=== PATIENT | male | born 1955 ===

== ENCOUNTER 2019-07-23 09:31 | Day surgery (SDC) | payer OTHER ==
[2019-07-23] VITALS (9 sets, daily range): BP systolic 114–146; BP diastolic 69–82
[~2019-07-23] VITALS: Ht 172.7 cm; Wt 88.9 kg
[~2019-07-23 09:31] MED LIST: LR 1000ml 1,000 ML IVLG SCH
[2019-07-23] MEDS ORDERED: SIMVASTATIN5 MG ORAL (10:09)
[2019-07-23] MEDS ORDERED: LR 1000ml ONE (11:00)
[2019-07-23] MEDS ORDERED: Propofol 200mg/20ml IV ONE (11:00)
[2019-07-23] MEDS ORDERED: Lidocaine 1% MPF 10mg/ml 5ml ONE (11:00)
[2019-07-23] MEDS ORDERED: LR 1000ml 1,000 ML IVLG SCH (11:07)
[2019-07-23] MEDS ORDERED: Midazolam 2mg/2ml Inj IVP PRN (11:15)
[2019-07-23] MEDS ORDERED: Meperidine 50mg/ml Inj(FOR RIGORS ONLY) IVP PRN (11:15)
[2019-07-23] MEDS ORDERED: Metoclopramide 10mg/2ml Inj IVP PRN (11:15)
[2019-07-23] MEDS ORDERED: oxyCODONE HCL/Acetaminophen 5/325mg ORAL PRN (11:15)
[2019-07-23] MEDS ORDERED: Ketorolac 30mg Inj IV PRN ×2 (11:15)
[2019-07-23] MEDS ORDERED: HYDROcodone/Acetamin 5/325 tab ORAL PRN (11:15)
[2019-07-23] MEDS ORDERED: DiphenhydrAMINE 50mg/ml Inj IVP PRN (11:15)
[2019-07-23] MEDS ORDERED: Labetalol 5mg/ml 20ml vial IV PRN (11:15)
[2019-07-23] MEDS ORDERED: HYDROcodone/Acetamin 7.5/325 tab ORAL PRN (11:15)
[2019-07-23] MEDS ORDERED: LORazepam Inj 2mg/ml 1ml IV PRN (11:15)
[2019-07-23] MEDS ORDERED: fentaNYL 100 mcg/2 mL IV PRN (11:15)
[2019-07-23] MEDS ORDERED: Atropine Sulfate 0.4mg/ml inj IVP PRN (11:15)
[2019-07-23] MEDS ORDERED: Hydromorphone 0.5mg/0.5ml inj IVP PRN (11:15)
--- NOTE | 2019-07-23 11:17 | Anethesia Preoperative Eval ---
Anesthesia Pre-op PMH/ROS General Date of Evaluation: Jul 23, 2019 Time of Evaluation: 11:03 Anesthesiologist: Miguel ASA Score: ASA 3 Mallampati Score Class I : Soft palate, uvula, fauces, pillars visible Class II: Soft palate, uvula, fauces visible Class III: Soft palate, base of uvula visible Class IV: Only hard plate visible Mallampati Classification: Class III Surgeon: Artem Diagnosis: Abd Pain Surgical Procedure: Colonoscopy Anesthesia History: none Family History: no anesthesia problems Allergies: Coded Allergies: No Known Allergies (Unverified , 07/23/19) Medications: see eMAR Patient NPO?: Yes Past Medical History Cardiovascular: Reports: HTN, other - HL Other: obesity - BMI 31 Anesthesia Pre-op Phys. Exam Physician Exam Last Vital Signs Date Time Temp Pulse Resp B/P (MAP) Pulse Ox O2 Delivery O2 Flow Rate FiO2 07/23/19 10:06 Room Air 07/23/19 10:03 97.0 71 18 146/80 98 Constitutional: NAD Neurologic: CN 2-12 intact Cardiovascular: RRR Respiratory: CTA Gastrointestinal: S/NT/ND Airway Exam Mallampati Score: Class III MO: full ROM: full Teeth: missing, intact Anesthesia Pre-op A/P Risk Assessment & Plan Assessment: ASA 3 Plan: TIVA Status Change Before Surgery: No Jason Rivera MD Jul 23, 2019 11:17
--- NOTE | 2019-07-23 11:17 | Short Stay Surgery H&P ---
History of Present Illness History of Present Illness Chief Complaint see typed H&P HPI Enrique Montes De Oca is a 63 year old male who was admitted on for Hx Of Colon Polyps Patient History Allergies: Coded Allergies: No Known Allergies (Unverified , 07/23/19) Medication History Scheduled Simvastatin (Zocor), Unknown Dose ORAL BEDTIME, (Reported) Physical Exam Vital Signs Last Vital Signs Date Time Temp Pulse Resp B/P (MAP) Pulse Ox O2 Delivery O2 Flow Rate FiO2 07/23/19 10:06 Room Air 07/23/19 10:03 97.0 71 18 146/80 98 Plan Attestation Are the patient's medical conditions optimized for surgery? Brittny Mcgill MD Jul 23, 2019 11:17
--- NOTE | 2019-07-23 11:18 | Pre-Procedure Note/Attestation ---
Pre-Procedure Note/Attestation Complete Prior to Procedure Planned Procedure: not applicable Procedure Narrative: colon Indications for Procedure Pre-Operative Diagnosis: h/o polyp Attestation I attest that I discussed the nature of the procedure; its benefits; risks and complications; and alternatives (and the risks and benefits of such alternatives ), prior to the procedure, with the patient (or the patient's legal customer service representative teller). I attest that, if there was a reasonable possibility of needing a blood transfusion, the patient (or the patient's legal customer service representative teller) was given the [facility] standardized written summary, pursuant to the [place] Nessa Blood Safety Act ([place] Health and Safety Code # 1645, as amended). I attest that I re-evaluated the patient just prior to the surgery and that there has been no change in the patient's H&P, except as documented below: Brittny Mcgill MD Jul 23, 2019 11:18
--- NOTE | 2019-07-23 11:21 | Immediate Post-Op Evaluation ---
Immediate Post-Op Evalulation Immediate Post-Op Evalulation Procedure: Colonoscopy Date of Evaluation: Jul 23, 2019 Time of Evaluation: 12:10 IV Fluids: 400 LR Blood Products: 0 Estimated Blood Loss: 2 Urinary Output: 0 Blood Pressure Systolic: 112 Blood Pressure Diastolic: 77 Pulse Rate: 54 Respiratory Rate: 16 O2 Sat by Pulse Oximetry: 100 Temperature (Fahrenheit): 97.7 Pain Score (1-10): 1 Nausea: No Vomiting: No Complications 0 Patient Status: awake, reacts, patent, none Hydration Status: adequate Jason Rivera MD Jul 23, 2019 11:21
--- NOTE | 2019-07-23 11:25 | 48 Hour Post Anesthesia Eval ---
Post Anesthesia Evaluation Procedure: Colonoscopy Date of Evaluation: Jul 23, 2019 Time of Evaluation: 14:23 Blood Pressure Systolic: 122 0: 72 Pulse Rate: 67 Respiratory Rate: 18 Temperature (Fahrenheit): 97.7 O2 Sat by Pulse Oximetry: 100 Airway: patent Nausea: No Vomiting: No Pain Intensity: 1 Hydration Status: adequate Cardiopulmonary Status: Stable Mental Status/LOC: patient returned to baseline Follow-up Care/Observations: 0 Post-Anesthesia Complications: 0 Follow-up care needed: ready to discharge Jason Rivera MD Jul 23, 2019 11:25
[2019-07-23] MEDS ORDERED: Flumazenil 0.1mg/ml 5ml Inj IV ONE (11:52)
--- NOTE | 2019-07-23 11:55 | Endoscopy Procedure Note ---
Endoscopy Procedure Note General Indication for Procedure: h/o polyp Procedures Performed: colonoscopy Operative Findings/Diagnosis: TV polyp --> h snare, mild L diverticulosis Specimen: yes Pt Tolerated Procedure Well: Yes Estimated Blood Loss: none Anesthesia Anesthesiologist: Miguel Anesthesia: MAC Medications Medication Given: see anesthesia record Inserted Devices Implant(s) used?: No Quality Quality of Bowel Preparation: Excellent GI Core Measures 50 yrs or older w/o bx or poly: No 10yrs. F/U recommended: No If not recommended, why?: Above average risk 18 years or older w/prev. colo: Yes <3yrs. since last colonoscopy: No Med reason:<3 yrs.: System Reason:<3 yrs.: Brittny Mcgill MD Jul 23, 2019 11:55
--- NOTE | 2019-07-23 11:58 | Brief Operative Note ---
Immediate Post Operative Note Operative Note Chief Complaint: h/o polyp Pre-op Diagnosis: h/o polyp Procedure: colon, hot snare Post-op Diagnosis: TV polyp - hot snare, mild Sig ins Surgeon: anatoliy Anesthesiologist: Miguel Anesthesia: MAC Specimen: yes Complications: none Condition: stable Fluids: recorded Estimated Blood Loss: none Drains: none Implant(s) used?: No Brittny Mcgill MD Jul 23, 2019 11:58
--- NOTE | 2019-07-24 06:30 | Operative Note - Dictated ---
DATE OF OPERATION: 07/23/2019 PROCEDURE: Colonoscopy with snare polypectomy. SURGEON: Brittny Mcgill M.D. ANESTHESIA: Please see the separate anesthesiologist notes for details. PREOP-ENDOSCOPIC DIAGNOSIS: History of colonic polyps. POST-ENDOSCOPIC DIAGNOSES: 1. transverse colon polyp, status post hot snare polypectomy. 2. Mild sigmoid diverticulosis. DESCRIPTION OF PROCEDURE: The procedure, its risks, indications, alternatives, and possible complications including but not limited to bleeding, infection, perforation, , and anesthesia complications were explained to the patient, and informed consent was obtained. The patient was then sedated and a rectal exam was done. The colonoscope was introduced into the rectum and cecum without difficulty. The cecum was identified by the appearance of the ileocecal valve. The colonoscope was then gradually withdrawn. The mucosa was examined carefully. Examination was notable for above findings. The colonoscope was removed. The patient was sent to recovery in good condition. COMPLICATIONS: None. RECOMMENDATIONS: 1. Follow up biopsy results. 2. Outpatient followup. 3. Repeat colonoscopy in 5 years. Brittny Mcgill M.D. DR: Justo JOB#: [id number] CC: Bekah Wang MD; Fax#: [phone]
== END 2019-07-23 13:10 | disposition home or self-care (01) ==
LOC: GAS 09:31
DX: K63.5 Polyp of colon (principal); Z86.010 Personal history of colon polyps; K57.90 Diverticulosis of intestine, part unspecified, without perforation or abscess without bleeding; E66.9 Obesity, unspecified; Z68.29 Body mass index [BMI] 29.0-29.9, adult
CPT/HCPCS: 45385; J2250; J2704; 94003; 94150